=== PATIENT | female | born 1995 | race Caucasian/White ===

== ENCOUNTER 2017-02-28 18:07 | Emergency (ER) | payer OTHER ==
[~2017-02-28] VITALS: Ht 167.6 cm; Wt 97.8 kg
[~2017-02-28 18:07] MED LIST: ADDERALL20 MG PO; AMPHETAMINE SAL20 MG PO; ANTIBIOTIC PO; DICLOFENAC SODI75 MG PO; FLEXERIL10 MG PO; Feosol PO; GLUCOPHAGE500 MG PO; INDOCIN25 MG PO; JUNEL1 EAC1 PO; MACROBID100 MG PO; MAGIC MOUTHWASH1 ML MM; Motrin PO; NAPROSYN500 MG PO; NAPROXEN500 MG PO; Natalcare Rx,Pramile PO; PEN-VEE K,VEET500 MG PO; PREDNISONE20 MG PO; PYRIDIUM100 MG PO; Percocet 5/325,Endoc PO; Senokot S,Pericolace PO; TORADOL10 MG PO; ULTRACET1 TABLET PO; ZOFRAN ODT4 MG PO
[2017-02-28 19:25] LABS: ADD MIUA? YES; BILIRUBIN NEGATIVE; BLOOD MODERATE; COLOR YELLOW ((YELLOW)); GLUCOSE (STRIP) NEGATIVE; KETONES NEGATIVE; LEUKOCYTES SMALL; NITRITE NEGATIVE; PROTEIN (STRIP) 30; SPECIFIC GRAVITY 1.024 (1.000-1.030); UROBILINOGEN 0.2 MG/DL (0.2-1.0)
[2017-02-28 19:37] LABS: BASOPHIL COUNT 0.1 K/uL (0-0.1); EOSINOPHIL (%) 1.4 % (0-5); EOSINOPHIL COUNT 0.2 K/uL (0-0.3); HEMATOCRIT 37.3 % (36.0-46.0); IMMATURE GRANULOCYTE (%) 0.5 % (0.0-0.7); IMMATURE GRANULOCYTE COUNT 0.1 K/uL; INSTRUMENT ABS NEUTROPHIL CT 11.3 K/uL; LYMPHOCYTE COUNT 3.1 K/uL (1.0-2.8); MCH 27.3 PG (29.0-34.0); MCHC 32.4 G/DL (30.0-36.0); MEAN PLAT.VOLUME 9.5 uM^3 (9.5-12.4); MONOCYTE (%) 8.5 % (3-12); MONOCYTE COUNT 1.4 K/uL (0-0.8); NEUTROPHIL (%) 69.9 % (45-76); NEUTROPHIL COUNT 11.3 K/uL (1.8-6.4); PLATELET COUNT 335 K/uL (156-360); RBC DIS.WIDTH-CV 12.9 % (11.8-14.6); RBC DIS.WIDTH-SD 39.5 % (39-53); RED BLOOD COUNT 4.44 M/uL (3.80-5.20); WHITE BLOOD COUNT 16.2 K/uL (4.1-10.2)
[2017-02-28 19:45] LABS: EPITHELIAL CELLS 1+ /HPF; MUCUS 3+ /LPF; WHITE BLOOD CELLS 0-5 /HPF (0-5)
[2017-02-28 19:46] LABS: BACTERIA RARE /HPF; CALCIUM OXALATE CRYSTALS RARE /HPF; CASTS NONE SEEN /LPF; CRYSTALS PRESENT
[2017-02-28 19:52] LABS: CHLORIDE 106 mEq/L (99-109); POTASSIUM 3.9 mEq/L (3.7-5.4); SODIUM 139 mEq/L (136-147)
[2017-02-28 19:54] LABS: GLUCOSE 86 mg/dL (70-99)
[2017-02-28 19:55] LABS: ANION GAP 9 MEQ/L (2-14)
[2017-02-28 19:56] LABS: TOTAL BILIRUBIN 0.3 mg/dL (0.0-1.0)
[2017-02-28 19:57] LABS: ALKALINE PHOSPHATASE 67 IU/L (3-129); GFR ESTIMATE (CALCULATED) > 59 mL/min/
[2017-02-28 19:59] LABS: UREA NITROGEN (BUN) 15 mg/dL (9-23)
[2017-02-28 20:06] LABS: QUANTITATIVE HCG < 4.0 MIU/ML
[2017-03-01] MEDS ORDERED: PERCOCET 5/31 TABLET PO (01:31)
[2017-03-01] MEDS ORDERED: FLOMAX0.4 MG PO (01:31)
[2017-03-01] MEDS ORDERED: ZOFRAN ODT4 MG PO (01:31)
[2017-03-01 02:05] VITALS: BP 121/72
[2017-03-01 13:46] LABS: CHLAMYDIA TRACHOMATIS NEGATIVE; NEISSERIA GONORRHOEAE POSITIVE
== END 2017-03-01 02:06 | disposition home or self-care (01) ==
LOC: EME 18:07
PROVIDERS: Physician Assistant
DX: N13.2 Hydronephrosis with renal and ureteral calculous obstruction (principal); D72.829 Elevated white blood cell count, unspecified; F17.200 Nicotine dependence, unspecified, uncomplicated
CPT/HCPCS: 74176; 76856; 80053; 81003; 84702; 85025; 87210; 87491; 87591; 99281; 99284; J1885

== ENCOUNTER 2017-08-05 05:16 | Emergency (ER) | payer OTHER ==
[~2017-08-05] VITALS: Ht 167.6 cm; Wt 103.8 kg
[~2017-08-05 05:16] MED LIST changes: +FLOMAX0.4 MG PO; +PERCOCET 5/31 TABLET PO
[2017-08-05 05:40] LABS: ADD MIUA? YES; BILIRUBIN NEGATIVE; BLOOD MODERATE; COLOR YELLOW ((YELLOW)); GLUCOSE (STRIP) NEGATIVE; KETONES NEGATIVE; LEUKOCYTES SMALL; NITRITE NEGATIVE; PROTEIN (STRIP) NEGATIVE; SPECIFIC GRAVITY 1.015 (1.000-1.030); UROBILINOGEN 0.2 MG/DL (0.2-1.0)
[2017-08-05 05:44] LABS: MCHC 33.1 G/DL (30.0-36.0); MCV 84.5 FL (83-99); MEAN PLAT.VOLUME 9.6 uM^3 (9.5-12.4); PLATELET COUNT 278 K/uL (156-360); RBC DIS.WIDTH-CV 12.6 % (11.8-14.6); RBC DIS.WIDTH-SD 38.5 % (39-53); RED BLOOD COUNT 4.14 M/uL (3.80-5.20); WHITE BLOOD COUNT 11.2 K/uL (4.1-10.2)
[2017-08-05 05:53] LABS: BACTERIA RARE /HPF; EPITHELIAL CELLS RARE /HPF; MUCUS 1+ /LPF; RED BLOOD CELLS 20-30 /HPF (0-5); UCUL ADDED? YES; WHITE BLOOD CELLS 15-20 /HPF (0-5)
[2017-08-05 05:55] LABS: CHLORIDE 104 mEq/L (99-109); POTASSIUM 3.9 mEq/L (3.7-5.4); SODIUM 138 mEq/L (136-147)
[2017-08-05 05:57] LABS: GLUCOSE 90 mg/dL (70-99)
[2017-08-05 05:58] LABS: ANION GAP 7 MEQ/L (2-14)
[2017-08-05 05:59] LABS: TOTAL BILIRUBIN 0.6 mg/dL (0.0-1.0)
[2017-08-05 06:00] LABS: ALKALINE PHOSPHATASE 64 IU/L (3-129)
[2017-08-05 06:01] LABS: GFR ESTIMATE (CALCULATED) > 59 mL/min/
[2017-08-05 06:02] LABS: UREA NITROGEN (BUN) 11 mg/dL (9-23)
[2017-08-05 06:04] LABS: LIPASE 2 U/L (1.0-51.0)
[2017-08-05 06:10] LABS: QUANTITATIVE HCG < 4.0 MIU/ML
[2017-08-05] MEDS ORDERED: BACTRIM,SEPT1 TABLET PO (09:03)
[2017-08-05] MEDS ORDERED: PERCOCET 5/31 TABLET PO (09:04)
[2017-08-05] MEDS ORDERED: ZOFRAN ODT4 MG PO (09:04)
[2017-08-05 09:19] VITALS: BP 1110/70
== END 2017-08-05 09:27 | disposition home or self-care (01) ==
LOC: EME 05:16
DX: N20.1 Calculus of ureter (principal); Z90.49 Acquired absence of other specified parts of digestive tract; Z87.442 Personal history of urinary calculi; F17.200 Nicotine dependence, unspecified, uncomplicated
CPT/HCPCS: 74000; 80053; 81003; 83690; 84702; 85027; 87086; 99281; 99284

== ENCOUNTER 2018-01-05 16:23 | Emergency (ER) | payer OTHER ==
[~2018-01-05] VITALS: Ht 167.6 cm; Wt 109.3 kg
[~2018-01-05 16:23] MED LIST changes: +BACTRIM,SEPT1 TABLET PO
[2018-01-05] MEDS ORDERED: PEN-VEE K,VEET500 MG PO (17:46)
[2018-01-05] MEDS ORDERED: MOTRIN800 MG PO (17:46)
[2018-01-05] MEDS ORDERED: ULTRAM50 MG PO (17:46)
[2018-01-05 17:55] VITALS: BP 134/81
== END 2018-01-05 18:02 | disposition home or self-care (01) ==
LOC: EME 16:23
DX: K02.9 Dental caries, unspecified (principal); F17.200 Nicotine dependence, unspecified, uncomplicated
CPT/HCPCS: 99281; 99284